=== PATIENT | female | born 1985 | race Caucasian/White ===

== ENCOUNTER 2017-08-21 14:19 | Emergency (ER) | payer SELFPAY ==
[~2017-08-21 14:19] MED LIST: NAPR500 OR; PRED20 PO; Z.0.NO CURRENT MEDS; ZITHTAB PO
[2017-08-21 14:33] VITALS: BP 116/73; PULSE 47; RESP 20; O2SAT 98
[2017-08-21] MEDS ORDERED: TRAM50 PO (14:44)
[2017-08-21] MEDS ORDERED: CYCL10TA PO (14:44)
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
[2017-08-21 14:53] VITALS: BP 111/74; PULSE 66; RESP 20; O2SAT 95
== END 2017-08-21 15:05 | disposition home or self-care (01) ==
LOC: PHED 14:19
DX: S03.03XA Dislocation of jaw, bilateral, initial encounter (principal); Z86.79 Personal history of other diseases of the circulatory system; Z87.39 Personal history of other diseases of the musculoskeletal system and connective tissue; X58.XXXA Exposure to other specified factors, initial encounter
CPT/HCPCS: 21480